=== PATIENT | female | born 1970 | race Caucasian/White ===

== ENCOUNTER 2016-07-01 23:08 | Inpatient (IN) | payer SELFPAY ==
[~2016-07-01] VITALS: Ht 152.4 cm; Wt 81.2 kg
[~2016-07-01 23:08] MED LIST: AZIT250T PO; BENZ100C PO; PRED50TA PO; PROAIR HFA8.5 GM INH
[2016-07-01 23:41] LABS: POTASSIUM ISTAT 4.4 mmol/L (3.5-5.0)
[2016-07-01] MEDS ORDERED: IV NORMAL SALINE 1000ML BAG 1,000 ML IV SCH (23:45)
--- NOTE | 2016-07-01 23:58 | PHYS DOC ---
Past Medical History Past Medical History: GERD, Hypertension Past Surgical History: Tubal ligation Alcohol Use: None Drug Use: Amphetamine (smokes) Adult General Chief Complaint Chief Complaint: CHEST WALL PAIN HPI HPI Patient is a 45 year old female who presents with male significant other presents for chest pressure and burning epigastric pain starting this evening. Constant, nonradiating. Has palpitations as well. She denies lightheadedness, dyspnea, cough, fever or chills, nausea or vomiting, diaphoresis, leg pain or swelling, hemoptysis, diarrhea. Denies recent illness. Denies changes in caffeine intake, but work nights so does drink caffeine. Denies over-the- counter medication use or street drug use. No prior episodes of arrhythmias. Review of Systems Review of Systems Constitutional: Denies fever or chills [] Eyes: Denies change in visual acuity, redness, or eye pain [] HENT: Denies nasal congestion or sore throat [] Respiratory: Denies cough or shortness of breath [] Cardiovascular: No additional information not addressed in HPI [] GI: Denies abdominal pain, nausea, vomiting, bloody stools or diarrhea [] : Denies dysuria or hematuria [] Musculoskeletal: Denies back pain or joint pain [] Integument: Denies rash or skin lesions [] Neurologic: Denies headache, focal weakness or sensory changes [] Endocrine: Denies polyuria or polydipsia [] Current Medications Current Medications Current Medications Medications (Trade) Dose Ordered Sig/Rob Start Time Stop Time Status Last Admin Dose Admin Adenosine (Adenocard) 6 mg 1X ONCE 07/02/16 00:00 07/02/16 00:08 DC Sodium Chloride (Iv Sodium Chloride 0.9% 1000ml Bag) 1,000 ml @ 1,000 mls/hr Q1H 07/01/16 23:45 07/02/16 00:44 DC 07/01/16 23:30 1,000 MLS/HR Allergies Allergies Allergies Coded Allergies Type Severity Reaction Last Updated Verified No Known Drug Allergies 03/22/13 No Physical Exam Physical Exam Constitutional: Well developed, well nourished, mild distress, non-toxic appearance. [] HENT: Normocephalic, atraumatic, bilateral external ears normal, oropharynx moist, nose normal. [] Eyes: PERRLA, EOMI. [] Neck: Normal range of motion, supple. [] Cardiovascular: Regular tachycardia. Equal distal pulses [] Lungs & Thorax: Bilateral breath sounds clear to auscultation [] Abdomen: Bowel sounds normal, soft, no tenderness. [] Skin: Warm, dry, no erythema, no rash. [] Back: Normal range of motion. [] Extremities: No tenderness, ROM intact, no edema. [] Neurologic: Alert and oriented X 3, normal motor function, normal sensory function, no focal deficits noted. [] Psychologic: Affect normal, judgement normal, mood normal. [] Current Patient Data Vital Signs Vital Signs Date Time Temp Pulse Resp B/P Pulse Ox O2 Delivery O2 Flow Rate FiO2 07/02/16 00:30 100 18 123/86 99 Room Air 07/01/16 23:56 98.8 98.8 Lab Values Laboratory Tests Test 07/01/16 23:35 07/01/16 23:38 07/01/16 23:45 07/02/16 00:10 POC Troponin I 0.04ng/ml (<0.08) POC Hemoglobin 14.3g/dL (12-15) POC Hematocrit 42% (36-40) H POC Sodium 136mmol/L (135-145) POC Potassium 4.4mmol/L (3.5-5.0) POC Chloride 103mmol/L (98-110) POC Total CO2 18mmol/L (23-32) L Anion Gap 20mmol/L (6-14) H POC Blood Urea Nitrogen 12mg/dL (8-26) POC Creatinine 0.9mg/dL (0.5-1.4) Glucose Level 124mg/dL (70-99) H POC Ionized Calcium (Markus) 0.88mmol/L (1.13-1.32) L White Blood Count 13.7x10^3/uL (4.0-11.0) H Red Blood Count 4.54x10^6/uL (3.50-5.40) Hemoglobin 13.6g/dL (12.0-15.5) Hematocrit 41.3% (36.0-47.0) Mean Corpuscular Volume 91fL (79-100) Mean Corpuscular Hemoglobin 30pg (25-35) Mean Corpuscular Hemoglobin Concent 33g/dL (31-37) Red Cell Distribution Width 12.7% (11.5-14.5) Platelet Count 441x10^3/uL (140-400) H Neutrophils (%) (Auto) 76% (31-73) H Lymphocytes (%) (Auto) 16% (24-48) L Monocytes (%) (Auto) 5% (0-9) Eosinophils (%) (Auto) 2% (0-3) Basophils (%) (Auto) 1% (0-3) Neutrophils # (Auto) 10.4x10^3uL (1.8-7.7) H Lymphocytes # (Auto) 2.1x10^3/uL (1.0-4.8) Monocytes # (Auto) 0.7x10^3/uL (0.0-1.1) Eosinophils # (Auto) 0.3x10^3/uL (0.0-0.7) Basophils # (Auto) 0.1x10^3/uL (0.0-0.2) Urine Opiates Screen Neg (NEG) Urine Methadone Screen Neg (NEG) Urine Barbiturates Neg (NEG) Urine Phencyclidine Screen Neg (NEG) Urine Amphetamine/Methamphetamine Pos (NEG) Urine Benzodiazepines Screen Neg (NEG) Urine Cocaine Screen Neg (NEG) Urine Cannabinoids Screen Neg (NEG) Urine Ethyl Alcohol Neg (NEG) Laboratory Tests 07/01/16 23:45 Laboratory Tests 07/01/16 23:38 EKG EKG EKG as interpreted by me as supraventricular tachycardia, rate 186, 2328 EKG as interpreted by me as sinus tachycardia, rate 122, no ST-T changes, normal intervals, no ectopy, 2344 Radiology/Procedures Radiology/Procedures Chest xray as interpreted by me with no acute cardiopulmonary disease process Course & Med Decision Making Course & Med Decision Making Pertinent Labs and Imaging studies reviewed. (See chart for details) EKG and telemetry shows SVT in the 180s to 190s. Initially attempted vagal maneuvers including following breath with Valsalva, followed by modified Valsalva, followed by carotid massage. There was no improvement with these methods. Discussed risks and benefits of adenosine administration, and verbal consent was given. She was given 6 mg of adenosine IV with conversion to sinus tachycardia. Her symptoms improved and now she is asymptomatic. She tested positive for amphetamines (she now admits to smoking meth >24 hours ago); her workup is unremarkable otherwise. Will admit for further monitoring. Cardiology consultation placed. Discussed case with Dr. Medeiros, who will admit. Dragon Disclaimer Dragon Disclaimer This electronic medical record was generated, in whole or in part, using a voice recognition dictation system. Departure Departure Impression: Primary Impression: Supraventricular tachycardia Additional Impression: Amphetamine abuse Disposition: ADMITTED INPATIENT Condition: STABLE Referrals: JAMES HARO MD (PCP) Problem Qualifiers Ana SESAY MD Jul 01, 2016 23:58
[2016-07-02] MEDS ORDERED: ADENOSINE 6 MG/2 ML VIAL. IV ONE ×2
[2016-07-02 00:01] LABS: BASO # 0.1 x10^3/uL (0.0-0.2); BASO % 1 % (0-3); EOS % 2 % (0-3); HEMATOCRIT 41.3 % (36.0-47.0); HEMOGLOBIN 13.6 g/dL (12.0-15.5); LYMPH # 2.1 x10^3/uL (1.0-4.8); LYMPH % 16 % (24-48); MEAN CORPUSCULAR HEMOGLOBIN 30 pg (25-35); MEAN CORPUSCULAR HGB CONC 33 g/dL (31-37); MEAN CORPUSCULAR VOLUME 91 fL (79-100); MONO % 5 % (0-9); NEUT % 76 % (31-73); PLATELET COUNT 441 x10^3/uL (140-400); RED BLOOD COUNT 4.54 x10^6/uL (3.50-5.40); RED CELL DISTRIBUTION WIDTH 12.7 % (11.5-14.5); WHITE BLOOD COUNT 13.7 x10^3/uL (4.0-11.0)
[2016-07-02 00:31] LABS: BARBITURATES NEG (NEG); BENZODIAZEPINES NEG (NEG); CANNABINOIDS NEG (NEG); COCAINE NEG (NEG); METHADONE NEG (NEG); OPIATES NEG (NEG); PHENCYCLIDINE NEG (NEG)
[2016-07-02 00:33] LABS: ETHANOL, URINE NEG (NEG)
[2016-07-02] MEDS ORDERED: ACETAMINOPHEN 325 MG TABLET. PO PRN (01:00)
[2016-07-02] MEDS ORDERED: ONDANSETRON PF 4 MG/2 ML VIAL. IV PRN (01:00)
--- NOTE | 2016-07-02 01:25 | EKG ---
[facility] [address] [place] [address] Test Date: 2016-07-01 Test Time: 23:28:14 Pat Name: TOD DENG Department: Room: 252 1 Gender: F Shared Services Representative: : 1970 Requested By: Ana SESAY Order Number: [id number] Reading MD: Renato Lopez Measurements Intervals [place] Rate: 186 P: WA: QRS: 4 QRSD: 74 T: 42 QT: 252 QTc: 450 Interpretive Statements SUPRAVENTRICULAR TACHYCARDIA Electronically Signed On 07-03-2016 8:19:18 CDT by Renato Lopez
--- NOTE | 2016-07-02 01:28 | EKG ---
[facility] [address] [place] [address] Test Date: 2016-07-01 Test Time: 23:44:28 Pat Name: TOD DENG Department: Room: 252 1 Gender: F Foreign Exchange Services Manager: : 1970 Requested By: Ana SESAY Order Number: [id number] Reading MD: Renato Lopez Measurements Intervals [place] Rate: 122 P: 51 NC: 122 QRS: 15 QRSD: 80 T: 52 QT: 300 QTc: 429 Interpretive Statements SINUS TACHYCARDIA Electronically Signed On 07-02-2016 12:26:51 CDT by Renato Lopez
--- NOTE | 2016-07-02 01:33 | ACF ---
Admission Forms Criteria SUPRAVENTRICULAR ARRHYTHMIAS Clinical Indications for Admission to Inpatient Care (Place 'X' for any and all applicable criteria): Admission is indicated by ANY ONE of the following (1)(2): [ ]I. Arrhythmia causing significant symptoms or findings as indicated by ANY ONE of the following: [ ]a) Chest pain [ ]b) Myocardial ischemia [ ]c) Altered mental status [ ]d) Dizziness, weakness, or light-headedness [ ]e) Dyspnea or hypoxemia [ ]f) Heart failure (eg, pulmonary edema)(11) [X]II. Initiation of antiarrhythmic drug therapy is needed in patient at high risk of adverse events as indicated by ANY ONE of the following: [ ]a) Significant structural heart disease (eg, aortic stenosis, reduced ejection fraction, cardiomyopathy, congenital heart disease) [X]b) Underlying sinus node or atrioventricular conduction disturbances [ ]c) Prolonged QT interval [ ]d) Need for treatment with antiarrhythmic that have significant proarrhythmic potential ( procainamide) [ ]e) Patient whose sinus rhythm has not been observed on ECG [ ]III. Inpatient admission required rather than observation care because of ANY ONE of the following: [ ]a) Syncope [ ]b) Patient has automatic implanted cardioverter-defibrillator that is repeatedly firing, malfunctioning, or in need of immediate adjustment of settings beyond scope of ambulatory or observation care. [ ]c) Hemodynamic instability that is severe or persistent [ ]d) Unstable cardiac conduction defects indicated by ANY ONE of the following(19)(20)(21): [ ]a) Type II second-degree atrioventricular block [ ]b) Third-degree atrioventricular block [ ]C) New-onset left bundle branch block with suspected myocardial ischemia [ ]e) Severe electrolyte abnormalities requiring inpatient care [ ]f) Continuous intravenous infusion of anticoagulation, platelet inhibitor, vasoactive, or antiarrhythmic medication(14) [ ]g) Pulmonary artery catheter monitoring [ ]h) Repeat cardioversion necessary [ ]i) Other condition, treatment or monitoring requiring inpatient admission [ ]IV. Underlying medical condition that necessitates inpatient care (eg, thyrotoxicosis, severe acidosis) Extended stay beyond goal length of stay may be needed for(1)(17)(18): [ ]a) Persistent hemodynamic instability or continued severe arrhythmia [ ]b) Continued monitoring during initiation of certain medications (eg, some antiarrhythmics)(17)(19) [ ]c) Precipitating cause requires ongoing inpatient care (eg, severe electrolyte abnormality, systemic infection, acidosis) [ ]d) Unstable comorbidities The original [facility] content created by [facility] has been revised. The portions of the content which have been revised are identified through the use of italic text or in bold, and [facility] has neither reviewed nor approved the modified material. All other unmodified content is copyright [facility]. Please see references footnoted in the original [facility] edition 2016 Admission Criteria Met?: Yes GIO MARTINEZ Jul 02, 2016 01:33
[2016-07-02 02:00] VITALS: BP 124/90
[2016-07-02] MEDS ORDERED: OLME20TA PO (05:41)
[2016-07-02] MEDS ORDERED: LANS15CA66 PO (05:42)
[2016-07-02 07:00] VITALS: BP 125/80
--- NOTE | 2016-07-02 08:09 | RAD ---
Portable chest, 07/01/2016: History: Chest pain Comparison is made to a study from 07/07/2012. The depth of inspiration is suboptimal. The heart size and pulmonary vascularity are normal. No pulmonary infiltrates are seen. There is no evidence of pleural fluid. IMPRESSION: No acute cardiopulmonary abnormality is detected.
--- NOTE | 2016-07-02 09:16 | PDOC2 ---
ELIZABETH ALMONTE OBSTETRICS SPECIALIST 07/02/16 0916: CARDIAC CONSULT DATE OF CONSULT Date of Consult DATE: 07/02/16 TIME: 09:08 REASON FOR CONSULT Reason for Consult: SVT REFERRING PHYSICIAN Referring Physician: Delphine SOURCE Source: Chart review, Patient HISTORY OF PRESENT ILLNESS HISTORY OF PRESENT ILLNESS This is a pleasant 45 yo female admitted for complains of palpitations. Reports that the last time she used meth was 3 yrs ago. SHe had a relapse when she went to her friends place and smoked meth 2 nights ago. There was no involvement of significant caffeinated beverages, or energy drinks, no recent use of decongestants. Last night she started feeling chest fluttering then tightness then SOA. She was anxious at that time. She felt relief at one point but it started back again. Upon admission she was noted with HR>150 on SVT. She did received adenosine which she converted. No prior hx of CAD, VTE, syncope. Denies any frequent HAs. No prior hx of arrhythmias. PAST MEDICAL HISTORY Cardiovascular: HTN Pulmonary: No pertinent hx CENTRAL NERVOUS SYSTEM: Other (No pertinent history) GI: GERD Heme/Onc: No pertinent hx Hepatobiliary: No pertinent hx Psych: Other (drug abuse) Musculoskeletal: Osteoarthritis, Other (pelvic fracture from fall in 2007) Rheumatologic: No pertinent hx Infectious disease: No pertinent hx ENT: No pertinent hx Renal/: No pertinent hx Endocrine: No pertinent hx Dermatology: Other (posterior neck sebaceous cyst) Grav: 5 Para: 3 PAST SURGICAL HISTORY Past Surgical History: Tubal Ligation FAMILY HISTORY Family History: Coronary Artery Disease (father at 50s, brother at 30s and sister at 60s) SOCIAL HISTORY Smoke: No (quit many yrs ago) ALCOHOL: occassional Drugs: Crystal meth Lives: with Family CURRENT MEDICATIONS CURRENT MEDICATIONS Current Medications Medications (Trade) Dose Ordered Sig/Rob Route PRN Reason Start Time Stop Time Status Last Admin Dose Admin Sodium Chloride (Iv Sodium Chloride 0.9% 1000ml Bag) 1,000 ml @ 1,000 mls/hr Q1H IV 07/01/16 23:45 07/02/16 00:44 DC 07/01/16 23:30 Adenosine (Adenocard) 6 mg 1X ONCE IV 07/02/16 00:00 07/02/16 00:01 DC 07/01/16 23:43 ALLERGIES ALLERGIES: Coded Allergies: No Known Drug Allergies (Unverified , 03/22/13) ROS Review of System 14 point ROS evaluated with pertinent positives noted per HPI PHYSICAL EXAM General: Alert, Oriented X3, Cooperative, No acute distress HEENT: Atraumatic, Mucous membr. moist/pink Lungs: Clear to auscultation, Normal air movement Heart: Regular rate (SR), Normal S1, Normal S2, No murmurs Abdomen: Soft, No tenderness Extremities: No cyanosis, No edema Skin: No breakdown, No significant lesion Neuro: Normal speech, Sensation intact Psych/Mental Status: Mental status NL, Mood NL MUSCULOSKELETAL: Osteoarthritic changes both hands VITALS VITALS Vital Signs Date Time Temp Pulse Resp B/P Pulse Ox O2 Delivery O2 Flow Rate FiO2 07/02/16 07:00 98.2 125 18 125/80 96 Room Air 98.2 LABS Lab: Laboratory Tests Test 07/01/16 23:35 07/01/16 23:38 07/01/16 23:45 07/02/16 00:10 Bedside Troponin I 0.04ng/ml (<0.08) Bedside Hemoglobin 14.3g/dL (12-15) Bedside Hematocrit 42% (36-40) Bedside Sodium 136mmol/L (135-145) Bedside Potassium 4.4mmol/L (3.5-5.0) Bedside Chloride 103mmol/L (98-110) Bedside Total CO2 18mmol/L (23-32) Anion Gap 20mmol/L (6-14) Bedside Blood Urea Nitrogen 12mg/dL (8-26) Bedside Creatinine 0.9mg/dL (0.5-1.4) Glucose Level 124mg/dL (70-99) Bedside Ionized Calcium (Markus) 0.88mmol/L (1.13-1.32) White Blood Count 13.7x10^3/uL (4.0-11.0) Red Blood Count 4.54x10^6/uL (3.50-5.40) Hemoglobin 13.6g/dL (12.0-15.5) Hematocrit 41.3% (36.0-47.0) Mean Corpuscular Volume 91fL (79-100) Mean Corpuscular Hemoglobin 30pg (25-35) Mean Corpuscular Hemoglobin Concent 33g/dL (31-37) Red Cell Distribution Width 12.7% (11.5-14.5) Platelet Count 441x10^3/uL (140-400) Neutrophils (%) (Auto) 76% (31-73) Lymphocytes (%) (Auto) 16% (24-48) Monocytes (%) (Auto) 5% (0-9) Eosinophils (%) (Auto) 2% (0-3) Basophils (%) (Auto) 1% (0-3) Neutrophils # (Auto) 10.4x10^3uL (1.8-7.7) Lymphocytes # (Auto) 2.1x10^3/uL (1.0-4.8) Monocytes # (Auto) 0.7x10^3/uL (0.0-1.1) Eosinophils # (Auto) 0.3x10^3/uL (0.0-0.7) Basophils # (Auto) 0.1x10^3/uL (0.0-0.2) Urine Opiates Screen Neg (NEG) Urine Methadone Screen Neg (NEG) Urine Barbiturates Neg (NEG) Urine Phencyclidine Screen Neg (NEG) Urine Amphetamine/Methamphetamine Pos (NEG) Urine Benzodiazepines Screen Neg (NEG) Urine Cocaine Screen Neg (NEG) Urine Cannabinoids Screen Neg (NEG) Urine Ethyl Alcohol Neg (NEG) ASSESSMENT/PLAN ASSESSMENT/PLAN 1. Symptomatic Sustained SVT/AVNRT: converted by adenosine to SR. induced by meth 2. Substance abuse: positive for amphetamines. drug rehab in the past 3. Anion gap metabolic acidosis: due to above. No resolved 4. HTN: controlled, on ARB 5. Elevated troponin: CP free overnight. No SOA. peaked at 0.2 which is related to SVT and meth use Recommendations 1. Pt has received IVF. Continue to push fluids 2. CMP, Mg, TSH, 3. Expect HR to at the high end for the next 24-48 hours. Continue washout period 4. TTE preliminary with normal wall motion and EF. 5. Encouraged abstinence. Problems: RUI STEVE MD 07/02/16 1435: CARDIAC CONSULT ALLERGIES ALLERGIES: Coded Allergies: No Known Drug Allergies (Unverified , 03/22/13) ASSESSMENT/PLAN ASSESSMENT/PLAN Pt. seen and examined. Agree with above REGISTERED NURSE POST PARTUM note. 45 y.o woman presenting with SVT, most likely AVNRT. Resolved with adenosine Normal cardiac exam. Echo wnl. Supportive care for now. Will likely need low dose b-codi if this recurs when she stops doing stimulant drugs Thanks for consult. Ok to DC. Problems: ELIZABETH ALMONTE OBSTETRICS SPECIALIST Jul 02, 2016 09:16 RUI STEVE MD Jul 02, 2016 14:35
[2016-07-02] MEDS ORDERED: ACETAMINOPHEN 325 MG TABLET. PO ONE (10:15)
[2016-07-02 10:42] LABS: ALBUMIN 3.1 g/dL (3.4-5.0); ALBUMIN/GLOBULIN RATIO 0.9 (1.0-1.7); CREATININE 0.9 mg/dL (0.6-1.0); GFR 68.3; MAGNESIUM 1.9 mg/dL (1.8-2.4); POTASSIUM 3.8 mmol/L (3.5-5.1); TOTAL BILIRUBIN 0.6 mg/dL (0.2-1.0); TOTAL PROTEIN 6.7 g/dL (6.4-8.2)
[2016-07-02 11:04] VITALS: BP 119/69
--- NOTE | 2016-07-02 13:01 | CARD ---
APPROVED REPORT EXAM: Two-dimensional and M-mode echocardiogram with Doppler and color Doppler. Other Information Quality : Average Rhythm : NSR INDICATION Arrhythmia SVT 2D DIMENSIONS RVDd2.7 (2.9-3.5cm)Left Atrium(2D)2.8 (1.6-4.0cm) IVSd1.1 (0.7-1.1cm)Aortic Root(2D)2.4 (2.0-3.7cm) LVDd3.7 (3.9-5.9cm)LVOT Diameter2.1 (1.8-2.4cm) PWd1.1 (0.7-1.1cm)LVDs2.3 (2.5-4.0cm) FS (%) 37.0 %SV38.8 ml LVEF(%)67.8 (>50%) Aortic Valve AoV Peak Fidel.115.2cm/sAoV VTI21.1cm AO Peak GR.5.3mmHgLVOT Peak Fidel.91.9cm/s LVOT VTI 21.51cmAO Mean GR.3mmHg RAFAEL (VMAX)2.99dv3JWJ (VTI)3.56cm2 Mitral Valve MV E Cawmzlqw70.1cm/sMV DECEL AUTA981ua MV A Jmksupuu81.3cm/sMV E Mean Gr.1mmHg MV EKC61yvB/A Ratio1.2 MV A Zhhenjet053ndUOF (PHT)3.74cm2 TDI E/Lateral E'8.0E/Medial E'8.5 Pulmonary Valve PV Peak Qbzfyjdc18.7cm/sPV Peak Grad.3mmHg RVOT VTI15.3cm Tricuspid Valve TR P. Pwklitgl882md/sRAP VYLFMLOV1mtPg TR Peak Gr.19irQwHFJC38hyKu LEFT VENTRICLE The left ventricle is normal size. There is normal left ventricular wall thickness. Left ventricle sy stolic function is normal. The Ejection Fraction is 65-70%. There is normal LV segmental wall motion. The left ventricular diastolic function and filling is normal for age. RIGHT VENTRICLE The right ventricle is normal size. The right ventricular systolic function is normal. ATRIA The left atrium size is normal. The right atrium size is normal. The interatrial septum is intact wit h no evidence for an atrial septal defect or patent foramen ovale as noted on 2-D or Doppler imaging. AORTIC VALVE The aortic valve is normal in structure and function. The aortic valve is trileaflet. Doppler and Col or Flow revealed no significant aortic regurgitation. There is no significant aortic valvular stenosi s. MITRAL VALVE The mitral valve is normal in structure and function. There is no mitral valve stenosis. Doppler and Color Flow revealed no mitral valve regurgitation noted. TRICUSPID VALVE The tricuspid valve is normal in structure and function. Doppler and Color Flow revealed trace to mil d tricuspid regurgitation. The PA pressure was estimated at 29 mmHg. There is no tricuspid valve sten osis. PULMONIC VALVE The pulmonic valve is not well visualized. Doppler and Color Flow revealed no pulmonic valvular regur gitation. There is no pulmonic valvular stenosis. GREAT VESSELS The aortic root is normal in size. The ascending aorta is normal in size. The IVC is normal in size a nd collapses >50% with inspiration. PERICARDIAL EFFUSION There is no evidence of significant pericardial effusion. Critical Notification Critical Value: No <Conclusion> Left ventricle systolic function is normal. The Ejection Fraction is 65-70%. There is normal LV segmental wall motion. Trace to mild tricuspid regurgitation. The PA pressure was estimated at 29 mmHg. There is no evidence of significant pericardial effusion.
--- NOTE | 2016-07-02 15:35 | SSS ---
ADMIT DATE: 07/02/2016 CHIEF COMPLAINT: Palpitations. HISTORY OF PRESENT ILLNESS: The patient is a pleasant 45-year-old female who took some meth. She developed palpitations. She presented to the ER with SVT. She has now been admitted and seen by Cardiology. She was actually converted with adenosine in the ER. Cardiology states she is clear to go home on a beta-codi. PAST MEDICAL HISTORY: Drug abuse. ALLERGIES: None. FAMILY HISTORY: Coronary artery disease. SOCIAL HISTORY: She does not drink or smoke. She takes drugs. MEDICATIONS: Please see the MRAD. REVIEW OF SYSTEMS: GENERAL: No history of weight change, weakness or fevers. SKIN: No bruising, hair changes or rashes. EYES: No blurred, double or loss of vision. NOSE AND THROAT: No history of nosebleeds, hoarseness or sore throat. HEART: No history of palpitations, chest pain or shortness of breath on exertion. LUNGS: Denies cough, hemoptysis, wheezing or shortness of breath. GASTROINTESTINAL: Denies changes in appetite, nausea, vomiting, diarrhea or constipation. GENITOURINARY: No history of frequency, urgency, hesitancy or nocturia. NEUROLOGIC: Denies history of numbness, tingling, tremor or weakness. PSYCHIATRIC: No history of panic, anxiety or depression. ENDOCRINE: No history of heat or cold intolerance, polyuria or polydipsia. EXTREMITIES: Denies muscle weakness, joint pain, pain on walking or stiffness. PHYSICAL EXAMINATION: VITAL SIGNS: Stable. Temperature afebrile, pulse 82, respirations 18, blood pressure 114/70. GENERAL: She is alert, cooperative. HEART: Normal S1, S2. LUNGS: Clear. ABDOMEN: Soft. EXTREMITIES: No edema. SKIN: No rashes. PSYCHIATRIC: She is stable. VASCULAR: Good capillary refill. ENDOCRINE: No thyromegaly. LYMPHATICS: No cervical nodes. HEMATOPOIETIC: No bruising. ASSESSMENT AND PLAN: Resolving supraventricular tachycardia secondary to methamphetamine. The patient is stable for discharge. I gave her a prescription for metoprolol 25 mg p.o. b.i.d. and told her to stop the methamphetamine. DISPOSITION: Home. ACTIVITY: As tolerated. DIET: Low sodium. MEDICATIONS: Please see the MRAD. TOTAL TIME: 32 minutes. JOLYNNL Juan Pablo CONROY DO DR: Delvin JOB#: [id number] / [id number]
== END 2016-07-02 15:30 | disposition home or self-care (01) | DRG 918 ==
LOC: ER 23:08 → 2 SOUTH 07-02 00:50
PROVIDERS: ADMIT Internal Medicine Hematology & Oncology; ATTEND Internal Medicine Hematology & Oncology
DX: T43.621A Poisoning by amphetamines, accidental (unintentional), initial encounter (principal); I47.1 Supraventricular tachycardia; E87.2 Acidosis; K21.9 Gastro-esophageal reflux disease without esophagitis; I10 Essential (primary) hypertension; F15.188 Other stimulant abuse with other stimulant-induced disorder; I25.10 Atherosclerotic heart disease of native coronary artery without angina pectoris; M19.90 Unspecified osteoarthritis, unspecified site; Z98.51 Tubal ligation status; Z82.49 Family history of ischemic heart disease and other diseases of the circulatory system
CPT/HCPCS: 36415; 71010; 80047; 80053; 83735; 84443; 84484; 85027; 93005; 93306; 96361; 96374; G0481; J0153; J7030; 99285-25